=== PATIENT | female | born 1960 | race Caucasian/White ===

== ENCOUNTER 2023-07-19 19:25 | Emergency (ER) | payer OTHER ==
--- NOTE | 2023-07-19 19:30 | ERPHSYRPT ---
- History of Present Illness Time Seen by Provider: 07/19/23 19:30 Historian: patient Exam Limitations: no limitations Physician History: This is a 62-year-old white female patient who began having vomiting today. She had several episodes of vomiting. She also had tube bouts of several diarrheal stools today. Similar symptoms have been going through the family over the holiday season. Patient denies chest pain. Patient denies shortness of breath. Patient does not have significant abdominal pain. Patient did take Zofran 2 different times during the day which helped relieve some of the nausea and vomiting. She currently is not having any nausea or her report. Timing/Duration: today Activities at Onset: none Quality: other (No significant abdominal pain) Abdominal Pain Onset Location: generalized abdomen Pain Radiation: no radiation Severity of Pain-Max: mild Severity of Pain-Current: mild Modifying Factors: Improves With: vomiting Associated Symptoms: diarrhea, loss of appetite, nausea, vomiting, weakness Previous symptoms: no prior history, no recent treatment Allergies/Adverse Reactions: codeine Adverse Reaction (Verified 07/19/23 19:35) Vomiting Home Medications: Celecoxib [Celebrex] 200 mg PO DAILY 07/19/23 [History] Ondansetron [Ondansetron Odt] 8 mg PO DAILY PRN 07/19/23 [History] Rizatriptan Benzoate [Maxalt] 5 mg PO DAILY PRN 07/19/23 [History] Travel Risk - International Travel Have you traveled outside of the country in past 3 weeks: No - Coronavirus Screening Are you exhibiting any of the following symptoms?: Yes Symptoms: Vomiting/Diarrhea Close contact with a COVID-19 positive Pt in past 14-21 Days: No - Review of Systems Constitutional: Weakness Eyes: No Symptoms Ears, Nose, & Throat: No Symptoms Respiratory: No Symptoms Cardiac: No Symptoms Abdominal/Gastrointestinal: Nausea, Vomiting, Diarrhea, Appetite Changes, No Abdominal Pain, No Constipation Genitourinary Symptoms: No Symptoms Musculoskeletal: No Symptoms Skin: No Symptoms Neurological: No Symptoms Psychological: No Symptoms Endocrine: No Symptoms Hematologic/Lymphatic: No Symptoms Immunological/Allergic: No Symptoms All Other Systems: Reviewed and Negative - Past Medical History Pertinent Past Medical History: Yes - Past Surgical History Past Surgical History: Yes - Nursing Vital Signs Nursing Vital Signs: Initial Vital Signs Temperature 99.0 F 07/19/23 19:36 Pulse Rate 73 07/19/23 19:36 Respiratory Rate 18 07/19/23 19:36 Blood Pressure 126/76 07/19/23 19:36 O2 Sat by Pulse Oximetry 98 07/19/23 19:36 Pain Scale Pain Intensity 3 - Physical Exam General Appearance: no apparent distress, alert, anxiety Eye Exam: PERRL/EOMI, eyes nml inspection Ears, Nose, Throat Exam: normal ENT inspection, moist mucous membranes, tonsillar exudate Neck Exam: normal inspection, non-tender, supple Respiratory Exam: normal breath sounds, lungs clear, airway intact, No chest tenderness, No respiratory distress Cardiovascular Exam: regular rate/rhythm, normal heart sounds, normal peripheral pulses Gastrointestinal/Abdomen Exam: soft, normal bowel sounds, No tenderness, No guarding, No pulsatile mass, No rebound Pelvic Exam: not done Rectal Exam: not done Back Exam: normal inspection, normal range of motion, No CVA tenderness, No vertebral tenderness Extremity Exam: normal inspection, normal range of motion, pelvis stable Neurologic Exam: alert, oriented x 3, cooperative, 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, normal mood/affect, nml cerebellar function, nml station & gait, sensation nml Skin Exam: normal color, warm, dry Lymphatic Exam: No adenopathy SpO2 Interpretation: normal O2 Delivery: Room Air - Course Nursing assessment & vital signs reviewed: Yes Ordered Tests: Active Orders 24 hr Category Date Time Status IV Insertion STAT Care 07/19/23 19:54 Active AMYLASE Stat Lab 07/19/23 19:50 Completed CBC W DIFF Stat Lab 07/19/23 19:50 Completed CMP Stat Lab 07/19/23 19:50 Completed CULTURE,URINE Stat Lab 07/19/23 19:35 Received LIPASE Stat Lab 07/19/23 19:50 Completed MONO SCREEN Stat Lab 07/19/23 19:50 Completed Medication Summary Discontinued Medications Generic Name Dose Route Start Last Admin Trade Name Freq PRN Reason Stop Dose Admin Sodium Chloride 1,000 mls @ 999 mls/hr 07/19/23 19:54 07/19/23 21:09 Sodium Chloride 0.9% 1000 Ml IV 07/19/23 20:54 Infused .Q1H1M STA Infusion Sodium Chloride Confirm 07/19/23 20:00 Sodium Chloride 0.9% 1000 Ml Administered 07/19/23 20:01 Dose 1,000 mls @ ud .ROUTE .STK-MED ONE Sodium Chloride 1,000 mls @ 999 mls/hr 07/19/23 20:31 07/19/23 22:06 Sodium Chloride 0.9% 1000 Ml IV 07/19/23 21:31 Infused .Q1H1M STA Infusion Sodium Chloride Confirm 07/19/23 20:33 Sodium Chloride 0.9% 1000 Ml Administered 07/19/23 20:34 Dose 1,000 mls @ ud .ROUTE .STK-MED ONE Ketorolac Tromethamine 30 mg 07/19/23 20:08 07/19/23 20:13 Ketorolac Tromethamine 30 Mg/Ml Inj IV 07/19/23 20:09 30 mg STAT ONE Administration Ketorolac Tromethamine Confirm 07/19/23 20:11 Ketorolac Tromethamine 30 Mg/Ml Inj Administered 07/19/23 20:12 Dose 30 mg .ROUTE .STK-MED ONE Orphenadrine Citrate 60 mg 07/19/23 21:33 07/19/23 21:39 Orphenadrine Citrate 60 Mg/2 Ml Vial IV 07/19/23 21:34 60 mg STAT ONE Administration Orphenadrine Citrate Confirm 07/19/23 21:37 Orphenadrine Citrate 60 Mg/2 Ml Vial Administered 07/19/23 21:38 Dose 60 mg .ROUTE .STK-MED ONE Pantoprazole Sodium 40 mg 07/19/23 19:54 07/19/23 20:03 Pantoprazole 40 Mg Vial IV 07/19/23 19:55 40 mg STAT ONE Administration Pantoprazole Sodium Confirm 07/19/23 20:00 Pantoprazole 40 Mg Vial Administered 07/19/23 20:01 Dose 40 mg IV .STK-MED ONE Lab/Rad Data: Laboratory Result Diagrams 07/19/23 19:50 07/19/23 19:50 Laboratory Results 07/19/23 07/19/23 07/19/23 Range/Units 20:00 19:50 19:50 WBC (4.0-10.5) x10^3/uL RBC (4.1-5.4) x10^6/uL Hgb (12.0-16.0) g/dL Hct (35-47) % MCV (78-100) fL MCH (26-32) pg MCHC (32-36) g/dL RDW (11.5-14.0) % Plt Count (150-450) x10^3/uL MPV (7.5-11.0) fL Gran % (36.0-66.0) % Immature Gran % (Auto) (0.00-0.4) % Nucleat RBC Rel Count (0.00-0.1) % Eos # (Auto) (0-0.5) x10^3/uL Immature Gran # (Auto) (0.00-0.03) x10^3u/L Absolute Lymphs (auto) (1.0-4.6) x10^3/uL Absolute Monos (auto) (0.0-1.3) x10^3/uL Absolute Nucleated RBC (0.00-0.01) x10^3u/L Lymphocytes % (24.0-44.0) % Monocytes % (0.0-12.0) % Eosinophils % (0.00-5.0) % Basophils % (0.0-0.4) % Absolute Granulocytes (1.4-6.9) x10^3/uL Basophils # (0-0.4) x10^3/uL Sodium 139 (137-145) mmol/L Potassium 3.8 (3.5-5.1) mmol/L Chloride 108 H (98-107) mmol/L Carbon Dioxide 21 L (22-30) mmol/L Anion Gap 13.6 (5-15) MEQ/L BUN 22 H (7-17) mg/dL Creatinine 0.78 (0.52-1.04) mg/dL Estimated GFR 84.8 ML/MIN Glucose 112 H (74-106) mg/dL Calcium 9.5 (8.4-10.2) mg/dL Total Bilirubin 0.70 (0.2-1.3) mg/dL AST 24 (14-36) U/L ALT 17 (0-35) U/L Alkaline Phosphatase 99 (38-126) U/L Serum Total Protein 8.2 (6.3-8.2) g/dL Albumin 4.6 (3.5-5.0) g/dL Amylase 74 (30-110) U/L Lipase 56 (23-300) U/L Urine Color (YELLOW) Urine Appearance (CLEAR) Urine pH (5-6) Ur Specific Freedom (1.005-1.025) POC Urine Protein Conf (Negative) Urine Ketones (NEGATIVE) Urine Nitrite (NEGATIVE) Urine Bilirubin (NEGATIVE) Urine Urobilinogen (0-1) mg/dL Urine Leukocytes (NEGATIVE) U Hyaline Cast (Auto) (0-2) /LPF Urine RBC (0-5) Florencio/ul Urine Microscopic RBC (0-5) /HPF Urine Microscopic WBC (0-5) /HPF Ur Epithelial Cells (None Seen) /HPF Urine Bacteria (None Seen) /HPF Urine Glucose (NEGATIVE) mg/dL Monoscreen NEGATIVE (NEGATIVE) Influenza Type A Ag NEGATIVE (NEGATIVE) Influenza Type B Ag NEGATIVE (NEGATIVE) RSV (PCR) NEGATIVE (NEGATIVE) SARS-CoV-2 (PCR) POSITIVE A (NEGATIVE) 07/19/23 07/19/23 Range/Units 19:50 19:35 WBC 6.2 (4.0-10.5) x10^3/uL RBC 4.88 (4.1-5.4) x10^6/uL Hgb 14.9 (12.0-16.0) g/dL Hct 45.8 (35-47) % MCV 93.9 (78-100) fL MCH 30.5 (26-32) pg MCHC 32.5 (32-36) g/dL RDW 12.5 (11.5-14.0) % Plt Count 192 (150-450) x10^3/uL MPV 11.3 H (7.5-11.0) fL Gran % 71.5 H (36.0-66.0) % Immature Gran % (Auto) 0.3 (0.00-0.4) % Nucleat RBC Rel Count 0.0 (0.00-0.1) % Eos # (Auto) 0.03 (0-0.5) x10^3/uL Immature Gran # (Auto) 0.02 (0.00-0.03) x10^3u/L Absolute Lymphs (auto) 1.30 (1.0-4.6) x10^3/uL Absolute Monos (auto) 0.41 (0.0-1.3) x10^3/uL Absolute Nucleated RBC 0.00 (0.00-0.01) x10^3u/L Lymphocytes % 20.9 L (24.0-44.0) % Monocytes % 6.6 (0.0-12.0) % Eosinophils % 0.5 (0.00-5.0) % Basophils % 0.2 (0.0-0.4) % Absolute Granulocytes 4.44 (1.4-6.9) x10^3/uL Basophils # 0.01 (0-0.4) x10^3/uL Sodium (137-145) mmol/L Potassium (3.5-5.1) mmol/L Chloride (98-107) mmol/L Carbon Dioxide (22-30) mmol/L Anion Gap (5-15) MEQ/L BUN (7-17) mg/dL Creatinine (0.52-1.04) mg/dL Estimated GFR ML/MIN Glucose (74-106) mg/dL Calcium (8.4-10.2) mg/dL Total Bilirubin (0.2-1.3) mg/dL AST (14-36) U/L ALT (0-35) U/L Alkaline Phosphatase (38-126) U/L Serum Total Protein (6.3-8.2) g/dL Albumin (3.5-5.0) g/dL Amylase (30-110) U/L Lipase (23-300) U/L Urine Color YELLOW (YELLOW) Urine Appearance CLEAR (CLEAR) Urine pH 5.5 (5-6) Ur Specific Freedom >=1.030 A (1.005-1.025) POC Urine Protein Conf 30 A (Negative) Urine Ketones MODERATE-40 A (NEGATIVE) Urine Nitrite NEGATIVE (NEGATIVE) Urine Bilirubin MODERATE A (NEGATIVE) Urine Urobilinogen 0.2 (0-1) mg/dL Urine Leukocytes TRACE A (NEGATIVE) U Hyaline Cast (Auto) 3-5 A (0-2) /LPF Urine RBC MODERATE A (0-5) Florencio/ul Urine Microscopic RBC 11-20 A (0-5) /HPF Urine Microscopic WBC 11-20 A (0-5) /HPF Ur Epithelial Cells Rare (None Seen) /HPF Urine Bacteria None Seen (None Seen) /HPF Urine Glucose NEGATIVE (NEGATIVE) mg/dL Monoscreen (NEGATIVE) Influenza Type A Ag (NEGATIVE) Influenza Type B Ag (NEGATIVE) RSV (PCR) (NEGATIVE) SARS-CoV-2 (PCR) (NEGATIVE) - Progress Progress: improved, re-examined Progress Note: 07/19/23 19:58 This patient's medical issue is 1 of moderate complexity. Level complex in the workup performed is based on review of the patient's past medical history, review the patient's medication list, review the patient drug allergy list, history of present illness and physical findings on examination. The workup in this patient includes placement of intravenous line, infusion of normal saline solution, infusion of Protonix, infusion of Zofran, CBC, CMP, amylase, lipase, urinalysis, viral swabs, monotest. 07/19/23 21:02 I interpreted the patient's laboratory results. The patient has obvious moderate dehydration. She also has COVID 19 infection. We did discuss the use of Paxlovid as a possibility. However, in talking to her more in-depth, her coughing symptoms have been going on for a week. We have opted not to start Paxlovid at this time. In addition, patient has white cells in her urine but no bacteria. We will hold off on antibiotics at this point. Will wait until the culture results return and decide at that time. She is agreeable to this. June ent was reexamined and she is feeling better after 1 L of normal saline fluid. 07/19/23 21:17 Patient has 8 mg Zofran tablets at home and does not require any other antiemetic medications per her report. Counseled pt/family regarding: lab results, diagnosis, need for follow-up Medical Desision Making - Independent Historian Additional History obtained from: Relative/friend - Diagnostic Testing Diagnostic test were ordered, analyzed, and reviewed by me: Yes - Risk of complications Low Risk: Low risk of morbidity from additional dx testing or treatment - Departure Departure Disposition: Home Clinical Impression: COVID-19 virus infection, Dehydration, Vomiting and diarrhea Condition: Stable Critical Care Time: No Referrals: DENISA NOONAN [Primary Care Provider] - Follow up/PCP as directed Additional Instructions: Drink plenty of clear liquids before advancing diet. Avoid fatty greasy spicy foods. Take your medications as prescribed.
[2023-07-19 19:42] LABS: Appearance CLEAR (CLEAR); Glucose NEGATIVE (NEGATIVE)
[2023-07-19 19:43] LABS: Bilirubin MODERATE (NEGATIVE); Ketones MODERATE-40 (NEGATIVE); Nitrite NEGATIVE (NEGATIVE); Ph 5.5 (5-6); Protein,Urine Dip 30 (Negative); RBC MODERATE Ery/ul (0-5); Specific Gravity >=1.030 (1.005-1.025); Urobilinogen 0.2 mg/dL (0-1)
[2023-07-19 19:49] LABS: Bacteria None Seen /HPF (None Seen); Epithelial Cells Rare /HPF (None Seen)
[2023-07-19] MEDS ORDERED: PROTONIX 40 MG IV IV ONE ×2 (19:54→20:00)
[2023-07-19] MEDS ORDERED: Sodium Chloride 0.9% 1000 ML 1,000 ML IV STA ×2 (19:54→20:31)
[2023-07-19 19:57] VITALS: TEMP 99
[2023-07-19] MEDS ORDERED: Sodium Chloride 0.9% 1000 ML 1,000 ML ONE ×2 (20:00→20:33)
[2023-07-19 20:07] LABS: Absolute Neutrophil Ct (ANC) 4.44 x10^3/uL (1.4-6.9); BASOPHIL % 0.2 % (0.0-0.4); Basophil (Absolute #) 0.01 x10^3/uL (0-0.4); Eosinophil % 0.5 % (0.00-5.0); Eosinophil (Absolute #) 0.03 x10^3/uL (0-0.5); Hematocrit 45.8 % (35-47); Hemoglobin 14.9 g/dL (12.0-16.0); IMMATURE GRAN # 0.02 x10^3u/L (0.00-0.03); IMMATURE GRAN % 0.3 % (0.00-0.4); Lymphocytes % 20.9 % (24.0-44.0); Mean Cell Volume 93.9 fL (78-100); Mean Corpuscular Hemoglobin 30.5 pg (26-32); Mean Corpuscular Hgb Concent. 32.5 g/dL (32-36); Mean Platelet Volume 11.3 fL (7.5-11.0); Monocyte (Absolute #) 0.41 x10^3/uL (0.0-1.3); Monocytes % 6.6 % (0.0-12.0); Neutrophil % 71.5 % (36.0-66.0); Platelet Count 192 x10^3/uL (150-450); Red Blood Count 4.88 x10^6/uL (4.1-5.4); Red Cell Distribution Width 12.5 % (11.5-14.0); White Blood Count 6.2 x10^3/uL (4.0-10.5)
[2023-07-19] MEDS ORDERED: TORAdol 30 mg Injection IV ONE (20:08)
[2023-07-19] MEDS ORDERED: TORAdol 30 mg Injection ONE (20:11)
[2023-07-19 20:26] LABS: ALBUMIN 4.6 g/dL (3.5-5.0); ANION GAP 13.6 MEQ/L (5-15); BILIRUBIN,TOTAL 0.7 mg/dL (0.2-1.3); Calcium 9.5 mg/dL (8.4-10.2); Creatinine 1 0.78 mg/dL (0.52-1.04); EST GLOMERULAR FILTRATION RATE 84.8 ML/MIN; Potassium 3.8 mmol/L (3.5-5.1); Total Protein 8.2 g/dL (6.3-8.2)
[2023-07-19 20:41] LABS: INFLUENZA A NEGATIVE (NEGATIVE); INFLUENZA B NEGATIVE (NEGATIVE); RESPIRATORY SYNCTIAL VIRUS NEGATIVE (NEGATIVE)
[2023-07-19 20:46] LABS: SARS-CoV-2 Xpert Express POSITIVE (NEGATIVE)
[2023-07-19] MEDS ORDERED: Norflex 60 MG/2 ML IV ONE (21:33)
[2023-07-19] MEDS ORDERED: Norflex 60 MG/2 ML ONE (21:37)
[2023-07-19 22:04] VITALS: BP 157/74; PULSE 70; RESP 20; O2SAT 97
== END 2023-07-19 22:32 | disposition home or self-care (01) ==
LOC: ED 19:25
DX: U07.1 COVID-19 (principal); E86.0 Dehydration; R11.2 Nausea with vomiting, unspecified; R19.7 Diarrhea, unspecified; Z79.899 Other long term (current) drug therapy
CPT/HCPCS: 0241U; 36000; 36415; 80053; 81001; 82150; 83690; 85025; 86308; 87086; 96360; 96374; 96375; 99284; J1885; J2360